=== PATIENT | male | born 1990 | race Caucasian/White ===

== ENCOUNTER 2018-07-17 21:44 | Emergency (ER) | payer SELFPAY ==
[2018-07-17 21:45] VITALS: BP 124/79; PULSE 81; RESP 16; TEMP 36.8; O2SAT 100; BMI 22.2
--- NOTE | 2018-07-17 22:29 | ED.VISSUMM ---
- ER Visit Summary Date of Service: 07/17/18 Chief Complaint: Rash History of Present Illness: The patient is a 27 M with no primary care physician. Reports he has a rash on his right arm that began 2 days ago. States that it tingles. He denies any pain. No fever or chills. No headache. Physical Examination: Vitals: Stable. Afebrile. General: Well-nourished and well-developed. Head: Normocephalic atraumatic. Neck: Supple, no lymphadenopathy. No JVD. Nontender. Cardiovascular: Regular rate and rhythm. No murmurs. Respiratory: No respiratory distress. Clear to auscultation bilaterally. Abdominal: Soft, nontender, nondistended, normal bowel sounds. No guarding, rebound, or peritoneal signs. Back: Nontender. Extremities: Nontender, no edema. Skin: Vesicular rash in a C7 distribution on the right arm that is consistent with shingles. Neurologic: Alert and oriented ?3. Cranial nerves II through XII are intact. Normal strength and sensation. Psych: Normal affect. Emergency Department Course and Treatment: Patient was treated with acyclovir. He is resting comfortably. Treatment Plan: Patient will be discharged with instructions to follow-up Dr. Arrieta in 1 week if not improving. Be placed on acyclovir at home. Return to the emergency department for any worsening symptoms. Disposition: To home in improved and stable condition. Impression: 1. Herpes zoster C7 distribution on right. This note was generated with basestone dictation software. It may contain incorrect words, spelling, and punctuation that were not noted in review of the chart prior to signing ED Disposition - Plan for ED Patient: Disposition: Home or Assisted Living Instructions: ED Shingles Prescriptions: Acyclovir [Zovirax] 800 mg PO 5X/DAY #35 tablet Referrals: Britt Jackson MD [STAFF PHYSICIAN] - 1 Week if not improving
[2018-07-17] MEDS: Acyclovir 800 MG Tablet PO (22:45)
[2018-07-17 22:47] VITALS: RESP 16
== END 2018-07-17 22:49 | disposition home or self-care (01) ==
LOC: ED 22:46
PROVIDERS: Emergency Provider Emergency Medicine
DX: B02.9 Zoster without complications (principal); Z72.0 Tobacco use
CPT/HCPCS: 99283